=== PATIENT | male | born 1990 | race Caucasian/White ===

== ENCOUNTER 2016-07-11 11:24 | Emergency (ER) | payer BC ==
[~2016-07-11] VITALS: Wt 109.1 kg
[2016-07-11] MEDS ORDERED: ONDANSETRON (ODT) 4 MG TAB ODT STA (12:28)
[2016-07-11] MEDS ORDERED: ONDANSETRON 4 MG INJ IV STA (12:32)
[2016-07-11] MEDS ORDERED: SOD CHLORIDE 0.9% 1,000 ML IV STA (12:32)
--- NOTE | 2016-07-11 13:12 | ERD ---
ER Documentation Chief Complaint Date/Time DATE: 07/11/16 TIME: 13:08 Chief Complaint llq pain, n/v/d and constipation HPI This 26-year-old male who presents the emergency department today complaining of abdominal pain, nausea vomiting diarrhea and intermittent constipation for the past week that is worsened over the last few days. Patient states he went to an urgent care last night and was diagnosed with diverticulitis and given medication however he has not picked up the medication. He was referred for a CT scan with contrast however he tried to go as an outpatient and they are not open today. He is here for a CT scan and further evaluation. Denies any fevers or chills. ROS All systems reviewed and are negative except as per history of present illness. Allergies Allergies: Coded Allergies: No Known Allergy (Unverified , 07/11/16) PMhx/Soc History of Surgery: Yes (L wrist surgery.) Anesthesia Reaction: No Hx Neurological Disorder: No Hx Respiratory Disorders: No Hx Cardiac Disorders: No Hx Psychiatric Problems: Yes (Anxiety/Depression.) Hx Miscellaneous Medical Probl: No Hx Substance Use: No Hx Tobacco Use: Yes Smoking Status: Current every day smoker Physical Exam Vitals Vital Signs Date Time Temp Pulse Resp B/P Pulse Ox O2 Delivery O2 Flow Rate FiO2 07/11/16 14:32 98.1 76 20 136/80 95 Room Air 07/11/16 11:35 98.3 104 20 122/67 96 Physical Exam Const: Obese, no acute distress Head: Atraumatic Eyes: Normal Conjunctiva ENT: Normal External Ears, Nose and Mouth. Neck: Full range of motion..~ No meningismus. Resp: Clear to auscultation bilaterally Cardio: Regular rate and rhythm, no murmurs Abd: Soft, left lower quadrant tenderness non distended. Normal bowel sounds. No tenderness McBurney's. No right lower quadrant pain. Skin: No petechiae or rashes Back: No midline or flank tenderness Ext: No cyanosis, or edema Neur: Awake and alert Psych: Normal Mood and Affect Results 24 hrs Current Medications Medications (Trade) Dose Ordered Sig/Kevin Route PRN Reason Start Time Stop Time Status Last Admin Dose Admin Ondansetron HCl 4 mg 4 mg ONCE STAT ODT 07/11/16 12:28 07/11/16 12:29 Cancel Sodium Chloride (NS) 1,000 ml @ 1,000 mls/hr Q1H STAT IV 07/11/16 12:32 07/11/16 13:31 DC 07/11/16 12:41 Ondansetron HCl (Zofran Inj) 4 mg ONCE STAT IV 07/11/16 12:32 07/11/16 12:33 DC 07/11/16 12:41 IV Flush 10 ml 10 ml STK-MED ONCE .ROUTE 07/11/16 13:32 07/11/16 13:33 DC Sodium Chloride (NS) 100 ml @ ud STK-MED ONCE .ROUTE 07/11/16 13:32 07/11/16 13:33 DC Iohexol (Omnipaque 300mg/ ml) 150 ml STK-MED ONCE .ROUTE 07/11/16 13:32 07/11/16 13:33 DC DIAGNOSTIC IMAGING REPORT Patient: ASYA NICOLAS : 1990 Age: 26 Sex: M MR #: [id number] DOS: 07/11/16 1232 Ordering MD: JORGE BUNCH PA-C Location: [facility] Room/Bed: PROCEDURE: CT Abdomen and Pelvis with intravenous contrast. CLINICAL INDICATION: Abdominal pain.. Nausea and vomiting with constipation. Rule out diverticulitis versus abscess. TECHNIQUE: CT scan of the abdomen and pelvis with intravenous contrast was performed on the multi-slice CT scanner. The patient was scanned following the uncomplicated intravenous administration of 100 cc of Omnipaque-300 contrast. Coronal and sagittal reformatted images were obtained from the axial source images. Images were reviewed on a high-resolution PACS workstation. Total DLP = 1342.9 mGy-cm. CTDIvol = 20.5 mGy. One or more of the following dose reduction techniques were used: Automated exposure control. Adjustment of the mA and/or kV according to patient size. Use of iterative reconstruction technique. COMPARISON: None. FINDINGS: CT abdomen and pelvis: The lung bases are clear. The heart size is normal in size. The liver is normal in size and density without focal mass or intrahepatic biliary dilatation. Focal fatty change seen at the falciform ligament. The spleen is normal in size and homogeneous in density. The pancreas as visualized is normal. The gallbladder shows mild intraluminal sludge without definite stones or wall thickening.. The adrenal glands are normal. The kidneys are symmetrically unremarkable. No urolithiasis, obstructive uropathy, or solid mass lesion is seen. The stomach is partially collapsed, but is grossly unremarkable. The small bowels are unremarkable. The colon and rectum are normal. The appendix is normal.. No evidence of acute appendicitis or diverticulitis. The pelvic organs are normal. The bladder is normal. There is no abdominal or pelvic adenopathy, free fluid, free air, mass, abscess or mesenteric inflammation. The aorta is normal in caliber and course. The osseous structures are intact. No osteolytic or osteoblastic lesions are identified. The soft tissues are within normal limits. IMPRESSION: 1. Unremarkable CT scan of the abdomen and pelvis. No evidence of acute diverticulitis or abscess. RPTAT: QQ .Giovanni Waterman MD, Date Time Electronically viewed and signed by .Giovanni Waterman MD, on 07/11/2016 13:56 .L/ CC: JORGE BUNCH PA-C Procedures/[facility] This a 26-year-old male who presents to the emergency department today complaining of abdominal pain, nausea vomiting and diarrhea for the past week. Patient was seen at [facility] last night by Dr. Daniela Becerril in [place], and had a full workup with the exception of a CT scan. Upon review of patient's medical records that he brought with him all of his laboratory work taken last night was within normal limits including his electrolytes, glucose, liver function, bilirubin. His UA was negative for infection. He had no elevated white blood cell count. He was not anemic. His platelets are within normal limits. I do not feel it was necessary to repeat laboratory work at this time. I did obtain a CT abdomen pelvis with contrast per the physician's request as patient indicated he would follow back up with that physician. CT abdomen pelvis with contrast is unremarkable. There is no evidence of acute diverticulitis or abscess. Small bowels are unremarkable. Colon and rectum are normal. Appendix is normal. There is no evidence of acute appendicitis. There is no free fluid, free air or mass abscess or mesenteric inflammation. Patient was given IV fluids for the contrast, Zofran here in the emergency department. He was not actively vomiting. Patient may follow back up with his physician that he saw at the urgent care and decide whether he needs to take the antibiotics that he was prescribed. Patient symptoms at this time is consistent with abdominal pain and associated nausea vomiting and diarrhea Patient is afebrile and otherwise well-appearing. Do not feel he requires further workup or imaging at this time. If explained to the patient he may require workup by his primary care physician or GI specialist for IBD. Low suspicion for ulcerative colitis. At this time the patient is stable for discharge and outpatient management. Patient should follow up with their PCP in the next 1-2 days. They may return to the emergency department sooner for any persistent or worsening of symptoms. Patient understood and agreed with the plan. Departure Diagnosis: Primary Impression: Abdominal pain Abdominal location: left lower quadrant Qualified Code: R10.32 - Left lower quadrant pain Additional Impression: Vomiting and diarrhea Condition: JORGE De PA-C Jul 11, 2016 13:12
[2016-07-11] MEDS ORDERED: IOHEXOL 300MG/ML 150 ML BTL ONE (13:32)
[2016-07-11] MEDS ORDERED: SOD CHLORIDE 0.9% 100 ML ONE (13:32)
--- NOTE | 2016-07-11 13:56 | RADRPT ---
PROCEDURE: CT Abdomen and Pelvis with intravenous contrast. CLINICAL INDICATION: Abdominal pain.. Nausea and vomiting with constipation. Rule out diverticulit is versus abscess. TECHNIQUE: CT scan of the abdomen and pelvis with intravenous contrast was performed on the multi- slice CT scanner. The patient was scanned following the uncomplicated intravenous administration of 100 cc of Omnipaque-300 contrast. Coronal and sagittal reformatted images were obtained from the a xial source images. Images were reviewed on a high-resolution PACS workstation. Total DLP = 1342.9 mGy-cm. CTDIvol = 20.5 mGy. One or more of the following dose reduction techniques were used: Automated exposure control. Adjustment of the mA and/or kV according to patient size. Use of iterative reconstruction technique. COMPARISON: None. FINDINGS: CT abdomen and pelvis: The lung bases are clear. The heart size is normal in size. The liver is normal in size and densit y without focal mass or intrahepatic biliary dilatation. Focal fatty change seen at the falciform li gament. The spleen is normal in size and homogeneous in density. The pancreas as visualized is no rmal. The gallbladder shows mild intraluminal sludge without definite stones or wall thickening.. The adrenal glands are normal. The kidneys are symmetrically unremarkable. No urolithiasis, obstru ctive uropathy, or solid mass lesion is seen. The stomach is partially collapsed, but is grossly unremarkable. The small bowels are unremarkable. The colon and rectum are normal. The appendix is normal.. No evidence of acute appendicitis or diver ticulitis. The pelvic organs are normal. The bladder is normal. There is no abdominal or pelvic bryant nopathy, free fluid, free air, mass, abscess or mesenteric inflammation. The aorta is normal in caliber and course. The osseous structures are intact. No osteolytic or osteo blastic lesions are identified. The soft tissues are within normal limits. IMPRESSION: 1. Unremarkable CT scan of the abdomen and pelvis. No evidence of acute diverticulitis or abscess. RPTAT: QQ .Giovanni Waterman MD, Date Time Electronically viewed and signed by .Giovanni Waterman MD, on 07/11/2016 13:56 .L/
[2016-07-11 14:32] VITALS: BP 136/80; PULSE 76; RESP 20; TEMP 98.1
== END 2016-07-11 14:32 | disposition home or self-care (01) ==
LOC: FTE 11:24
DX: R10.32 Left lower quadrant pain (principal); R11.10 Vomiting, unspecified; R19.7 Diarrhea, unspecified; F17.210 Nicotine dependence, cigarettes, uncomplicated
CPT/HCPCS: 74177; 96374; 99285; J2405; J7030; Q9967

== ENCOUNTER 2016-09-22 12:59 | Emergency (ER) | END 2016-09-22 15:09 | disposition home or self-care (01) | DX: R10.30 Lower abdominal pain, unspecified (principal); R11.10 Vomiting, unspecified; Z87.891 Personal history of nicotine dependence | CPT/HCPCS: 36415; 80053; 83690; 85025; 96374; 99284; J2405; J7030 ==